=== PATIENT | male | born 1965 | race Caucasian/White ===

== ENCOUNTER 2017-10-15 10:22 | Emergency (ER) | payer MEDICAID ==
[~2017-10-15] VITALS: Ht 170.2 cm; Wt 68.0 kg
[2017-10-15 14:20] VITALS: BP 138/78
== END 2017-10-15 14:20 | disposition home or self-care (01) ==
LOC: ER 11:55
DX: J01.90 Acute sinusitis, unspecified (principal)
CPT/HCPCS: 99283